=== PATIENT | female | born 1980 | race Caucasian/White ===

== ENCOUNTER 2018-12-30 09:37 | Inpatient (IN) | payer OTHER ==
[2018-12-30 10:21] VITALS: BMI 27.6
--- NOTE | 2018-12-30 11:19 | HP ---
CIWA Score Nausea/Vomitin-Mild Nausea/No Vomiting Muscle Tremors: 4-Moderate,w/Arms Extend Anxiety: 4-Mod. Anxious/Guarded Agitation: 3 Paroxysmal Sweats: No Perspiration Orientation: 0-Oriented Tacttile Disturbances: 0-None Auditory Disturbances: 0-None Visual Disturbances: 0-None Headache: 2-Mild (appropriate for detox) CIWA-Ar Total Score: 14 - Admission Criteria OASAS Guidelines: Admission for Medically Managed Detox: Requires at least one of the followin. CIWA greater than 12 2. Seizures within the past 24 hours 3. Delirium tremens within the past 24 hours 4. Hallucinations within the past 24 hours 5. Acute intervention needed for co occurring medical disorder 6. Acute intervention needed for co occurring psychiatric disorder 7. Severe withdrawal that cannot be handled at a lower level of care (continued vomiting, continued diarrhea, abnormal vital signs) requiring intravenous medication and/or fluids 8. Admission ROS [facility] Chief Complaint: " I want to stop drinking and I have an 8 year old son and I want to wean off the valium and find ways to cope instead of using Valium." Allergies/Adverse Reactions: Allergies Allergy/AdvReac Type Severity Reaction Status Date / Time No Known Allergies Allergy Verified 12/30/18 10:04 History of Present Illness: Patient is 38 year old female on suboxone maintenance by Dr. Wilder. She takes gabapentin for anxiety. She takes effexor once a day. She is also alcohol dependent and it is out of control. Psych Hx: Depression on Effexor Patient is drinking 8-9 drinks per day of wine to hard liquor. She started drinking at 14 years of age. She has blacked out in the past but not recently. She denies seizures in the past. Patient is getting prescribed valium for many years but she does not have psychiatrist. Patient smokes 1ppd of ciggarettes daily. Started smoking at 14 years old. PMH: None Psurg Hx: None, except C/S for delivery of son. Patient denies any legal issues pending. Patient is domiciled on [address] and son is with his father. Exam Limitations: No Limitations - Ebola screening Have you traveled outside of the country in the last 21 days: No Have you had contact with anyone from an Ebola affected area: No Have you been sick,other than usual withdrawal symptoms: No Do you have a fever: No - Review of Systems Constitutional: No Symptoms Reported, Loss of Appetite EENT: reports: No Symptoms Reported Respiratory: reports: Cough Cardiac: reports: No Symptoms Reported GI: reports: Constipated, Nausea, Indigestion : reports: No Symptoms Reported Musculoskeletal: reports: No Symptoms Reported Integumentary: reports: No Symptoms Reported Neuro: reports: Headache Endocrine: reports: No Symptoms Reported Hematology: reports: No Symptoms Reported Psychiatric: reports: Agitated, Anxious, Depressed Other Systems: Reviewed and Negative Patient History - Patient Medical History Hx Anemia: No Hx Asthma: No Hx Chronic Obstructive Pulmonary Disease (COPD): No Hx Cancer: No Hx Cardiac Disorders: No Hx Congestive Heart Failure: No Hx Hypertension: No Hx Hypercholesterolemia: No Hx Pacemaker: No HX Cerebrovascular Accident: No Hx Seizures: No Hx Dementia: No Hx Diabetes: No Hx Gastrointestinal Disorders: No Hx Liver Disease: No Hx Genitourinary Disorders: No Hx Sexually Transmitted Disorders: No Hx Renal Disease (ESRD): No Hx Thyroid Disease: No Hx Human Immunodeficiency Virus (HIV): No (last tested 3 month ago negative) Hx Hepatitis C: No (last tested 3 month ago negative) Hx Depression: Yes Hx Suicide Attempt: No Hx Bipolar Disorder: No Hx Schizophrenia: No - Patient Surgical History Past Surgical History: Yes Hx Section: Yes (for son's delivery) - PPD History Previous Implant?: Yes Documented Results: Negative w/o proof Implanted On Prior [facility] Admission?: No Date: 07/08/18 Results: negative PPD to be Administered?: No - Reproductive History Patient is a Female of Child Bearing Age (11 -55 yrs old): Yes Last Menstrual Period: 12/14/18 Patient : No - Smoking Cessation Smoking history: Current every day smoker Have you smoked in the past 12 months: Yes Aproximately how many cigarettes per day: 20 Hx Chewing Tobacco Use: No Initiated information on smoking cessation: Yes 'Breaking Loose' booklet given: 12/30/18 - Substance & Tx. History Hx Alcohol Use: Yes (many different forms of alcohol daily) Hx Substance Use: Yes Substance Use Type: Cocaine, Marijuana, Opiates, Tranquilizers Hx Substance Use Treatment: Yes (on suboxone program) - Substances abused Alcohol Substance route: Oral Frequency: Daily Amount used: 2 bottles of wine, 2-3 beers, 2-3 vodka and cranberry (VARIES) Age of first use: 14 Date of last use: 12/29/18 Family Disease History - Family Disease History Family Disease History: Other: Father (unknown), Mother (alive depression), Brother (alive and well), Son (1 son 8 years old) Admission Physical Exam [facility] - Vital Signs Vital Signs: Vital Signs - 24 hr 12/30/18 12/30/18 10:04 10:41 Temperature 98.6 F 98.6 F Pulse Rate 91 H 91 H Respiratory 18 18 Rate Blood Pressure 142/94 142/94 - Physical General Appearance: Yes: Mild Distress HEENTM: Yes: EOMI, Hearing grossly Normal, Normocephalic, Normal Voice, NEDRA, Pharynx Normal Respiratory: Yes: Chest Non-Tender, Lungs Clear Neck: Yes: No masses,lesions,Nodules, Supple, Trachea in good position Breast: Yes: Breast Exam Deferred Cardiology: Yes: Regular Rhythm, S1, S2, Tachycardia Abdominal: Yes: Normal Bowel Sounds, Non Tender, Soft Genitourinary: Yes: Within Normal Limits Back: Yes: Normal Inspection Musculoskeletal: Yes: full range of Motion, Gait Steady Extremities: Yes: Normal Capillary Refill, Normal Inspection, Normal Range of Motion, Non-Tender 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, Fully Oriented, Alert, Motor Strength 5/5, Normal Mood/Affect Integumentary: Yes: Normal Color, Warm Lymphatic: Yes: Within Normal Limits - Diagnostic (1) Alcohol dependence with withdrawal, uncomplicated Current Visit: Yes Status: Acute (2) Depression Current Visit: Yes Status: Acute (3) Opioid dependence Current Visit: Yes Status: Acute (4) Anxiety Current Visit: Yes Status: Acute Cleared for Admission [facility] - Detox or Rehab [facility] Level of Care: Medically Managed Screened but not Admitted - Documentation of Visit Screened but not Admitted: No Breathalyzer - Breathalyzer Breathalyzer: 0.008 Vital Signs - Vital Signs Vital signs refused: No Temperature: 98.6 F Temperature source: Oral Pulse Rate: 91 Respiratory Rate: 20 Blood Pressure: 142/94 BP Location: Left Arm Blood Pressure position: Sitting - Height Height: 5 ft 7 in - Weight Weight: 176 lb Weight measurement method: Standing scale - BMI Body Mass Index (BMI): 27.6 - Bowel Function Bowel Movement: No Urine Drug Screen - Test Device Lot number: [id number] Expiration date: 09/21/20 - Control Is test valid?: Yes - Results Drug screen NEGATIVE: No Urine drug screen results: THC-Marijuana, ANA-Cocaine, BZO-Benzodiazepines, BUP- Suboxone Inpatient Rehab Admission - Rehab Decision to Admit Inpatient rehab admission?: No
[2018-12-30] MEDS ORDERED: MENTHOL/PHENOL 1 EACH UD MM PRN (11:36)
[2018-12-30] MEDS ORDERED: BISMUTH SUBSALICYLATE 262 MG/15 ML BTL PO PRN (11:36)
[2018-12-30] MEDS ORDERED: ACETAMINOPHEN 325 MG TABLET (FP) PO PRN ×2 (11:36)
[2018-12-30] MEDS ORDERED: MAGNESIUM CITRATE 300 ML BOTTLE PO PRN (11:36)
[2018-12-30] MEDS ORDERED: IBUPROFEN 400 MG TABLET (FP) PO PRN (11:36)
[2018-12-30] MEDS ORDERED: MAGNESIUM HYDROX 2400MG/30ML ORAL SUSPENSION 30 ML CUP PO PRN (11:36)
[2018-12-30] MEDS ORDERED: MAG HYDROX/AL HYDROX/SIMETH 30 ML UNIT-DOSE CUP PO PRN (11:36)
[2018-12-30] MEDS: GABAPENTIN 300 MG CAPSULE (FP) PO SCH ×2 (12:57→22:15)
[2018-12-30] MEDS: NICOTINE 14 MG/24 HOURS TOPICAL PATCH TD SCH (12:57)
[2018-12-30] MEDS: chlordiazePOXIDE HCL 25 MG CAPSULE PO PRN (12:57)
[2018-12-30] MEDS: VENLAFAXINE HCL 75 MG TABLET PO SCH ×2 (13:00→22:14)
[2018-12-30] MEDS: BUPRENORPHINE/NALOXONE 8 MG/2 MG FILM PACKET SL SCH (13:18)
[2018-12-30 15:58] LABS: HEMATOCRIT 38.8 % (32.4-45.2); HEMOGLOBIN 13.2 GM/dL (10.7-15.3); MCHC 33.9 g/dl (32.0-36.0); MEAN CELL VOLUME 94.5 fl (80-96); PLATELET COUNT 258 K/MM3 (134-434); RBC 4.11 M/mm3 (3.60-5.2); RDW 13.7 % (11.6-15.6); WHITE BLOOD COUNT 6.9 K/mm3 (4.0-10.0)
[2018-12-30 16:11] LABS: ALBUMIN 4.2 g/dl (3.4-5.0); BILIRUBIN,TOTAL 0.6 mg/dL (0.2-1); BLOOD UREA NITROGEN 10.2 mg/dL (7-18); CALCIUM 9.9 mg/dL (8.5-10.1); CREATININE 0.8 mg/dL (0.55-1.3); POTASSIUM 4.2 mmol/L (3.5-5.1)
[2018-12-30] MEDS: chlordiazePOXIDE HCL 25 MG CAPSULE PO SCH ×2 (17:30→22:14)
[2018-12-30] MEDS: THIAMINE HCL 100 MG TABLET (FP) PO SCH (22:14)
[2018-12-30] MEDS: MELATONIN 5 MG TABLETS PO PRN (22:15)
[2018-12-31] MEDS: chlordiazePOXIDE HCL 25 MG CAPSULE PO SCH ×4 (05:57→22:50)
[2018-12-31] MEDS: GABAPENTIN 300 MG CAPSULE (FP) PO SCH ×2 (10:36→22:49)
[2018-12-31] MEDS: BUPRENORPHINE/NALOXONE 8 MG/2 MG FILM PACKET SL SCH (10:36)
[2018-12-31] MEDS: VENLAFAXINE HCL 75 MG TABLET PO SCH ×2 (10:37→22:49)
[2018-12-31] MEDS: hydrOXYzine HCL 25 MG TABLET (FP) PO PRN (10:37)
[2018-12-31] MEDS: NICOTINE 14 MG/24 HOURS TOPICAL PATCH TD SCH (10:37)
[2018-12-31] MEDS: PRENATAL VITAMINS W/ FOLIC ACID TABLET (FP) PO SCH (10:37)
--- NOTE | 2018-12-31 12:13 | PN ---
S CIWA - CIWA Score Nausea/Vomitin-No Nausea/No Vomiting Muscle Tremors: 3 Anxiety: 3 Agitation: 3 Paroxysmal Sweats: 3 Orientation: 0-Oriented Tacttile Disturbances: 0-None Auditory Disturbances: 0-None Visual Disturbances: 0-None Headache: 0-None Present CIWA-Ar Total Score: 12 S Progress Note (SOAP) Subjective: sweats shakes interrupted sleep body aches achy Objective: 12/31/18 12:12 Vital Signs Temperature 98.6 F 12/31/18 10:12 Pulse Rate 56 L 12/31/18 10:12 Respiratory Rate 20 12/31/18 10:12 Blood Pressure 136/69 12/31/18 10:12 O2 Sat by Pulse Oximetry (%) Laboratory Tests 12/30/18 12/30/18 12/30/18 11:40 11:40 11:40 WBC 6.9 RBC 4.11 Hgb 13.2 Hct 38.8 MCV 94.5 MCH 32.0 MCHC 33.9 RDW 13.7 Plt Count 258 MPV 9.0 Sodium 138 Potassium 4.2 Chloride 101 Carbon Dioxide 28 Anion Gap 9 BUN 10.2 Creatinine 0.8 Est GFR (CKD-EPI)AfAm 108.39 Est GFR (CKD-EPI)NonAf 93.52 Random Glucose 95 Calcium 9.9 Total Bilirubin 0.6 AST 111 H ALT 85 H Alkaline Phosphatase 122 H Total Protein 8.0 Albumin 4.2 RPR Titer Nonreactive labs noted aaox3 ambulating no acute distress Assessment: 12/31/18 12:12 withdrawal sx Plan: continue detox increase fluids
[2018-12-31] MEDS: METHOCARBAMOL 500 MG TABLET PO PRN (12:23)
[2018-12-31] MEDS: chlordiazePOXIDE HCL 25 MG CAPSULE PO PRN (12:23)
[2018-12-31] MEDS: THIAMINE HCL 100 MG TABLET (FP) PO SCH (22:49)
[2018-12-31] MEDS: MELATONIN 5 MG TABLETS PO PRN (22:50)
[2019-01-01] MEDS: chlordiazePOXIDE HCL 25 MG CAPSULE PO SCH ×4 (05:23→22:52)
[2019-01-01] MEDS: BUPRENORPHINE/NALOXONE 8 MG/2 MG FILM PACKET SL SCH (10:45)
[2019-01-01] MEDS: PRENATAL VITAMINS W/ FOLIC ACID TABLET (FP) PO SCH (10:45)
[2019-01-01] MEDS: GABAPENTIN 300 MG CAPSULE (FP) PO SCH ×2 (10:45→22:52)
[2019-01-01] MEDS: VENLAFAXINE HCL 75 MG TABLET PO SCH ×2 (10:45→22:52)
[2019-01-01] MEDS: hydrOXYzine HCL 25 MG TABLET (FP) PO PRN ×2 (10:46→17:42)
[2019-01-01] MEDS: METHOCARBAMOL 500 MG TABLET PO PRN ×2 (10:46→17:40)
[2019-01-01] MEDS: NICOTINE 14 MG/24 HOURS TOPICAL PATCH TD SCH (10:46)
--- NOTE | 2019-01-01 13:26 | PN ---
S CIWA - CIWA Score Nausea/Vomitin-No Nausea/No Vomiting Muscle Tremors: 3 Anxiety: 2 Agitation: 2 Paroxysmal Sweats: 2 Orientation: 0-Oriented Tacttile Disturbances: 0-None Auditory Disturbances: 0-None Visual Disturbances: 0-None Headache: 0-None Present CIWA-Ar Total Score: 9 BHS Progress Note (SOAP) Subjective: sweats anxiety shakes Objective: 01/01/19 13:25 Vital Signs Temperature 97.7 F 01/01/19 09:38 Pulse Rate 69 01/01/19 09:38 Respiratory Rate 18 01/01/19 09:38 Blood Pressure 124/86 01/01/19 09:38 O2 Sat by Pulse Oximetry (%) Laboratory Tests 12/30/18 12/30/18 12/30/18 11:40 11:40 11:40 WBC 6.9 RBC 4.11 Hgb 13.2 Hct 38.8 MCV 94.5 MCH 32.0 MCHC 33.9 RDW 13.7 Plt Count 258 MPV 9.0 Sodium 138 Potassium 4.2 Chloride 101 Carbon Dioxide 28 Anion Gap 9 BUN 10.2 Creatinine 0.8 Est GFR (CKD-EPI)AfAm 108.39 Est GFR (CKD-EPI)NonAf 93.52 Random Glucose 95 Calcium 9.9 Total Bilirubin 0.6 AST 111 H ALT 85 H Alkaline Phosphatase 122 H Total Protein 8.0 Albumin 4.2 RPR Titer Nonreactive labs noted aaox3 ambulating no acute distress Assessment: 01/01/19 13:26 withdrawal sx Plan: continue detox increase fluids
[2019-01-01] MEDS: chlordiazePOXIDE HCL 25 MG CAPSULE PO PRN (20:13)
[2019-01-01] MEDS: MELATONIN 5 MG TABLETS PO PRN (22:52)
[2019-01-01] MEDS: THIAMINE HCL 100 MG TABLET (FP) PO SCH (22:52)
[2019-01-02] MEDS ORDERED: chlordiazePOXIDE HCL 10 MG CAPSULE PO PRN
[2019-01-02] MEDS: chlordiazePOXIDE HCL 10 MG CAPSULE PO SCH ×4 (00:44→22:39)
[2019-01-02] MEDS: METHOCARBAMOL 500 MG TABLET PO PRN (09:05)
[2019-01-02] MEDS: hydrOXYzine HCL 25 MG TABLET (FP) PO PRN (09:05)
[2019-01-02] MEDS: VENLAFAXINE HCL 75 MG TABLET PO SCH ×2 (10:36→22:39)
[2019-01-02] MEDS: GABAPENTIN 300 MG CAPSULE (FP) PO SCH ×2 (10:36→22:39)
[2019-01-02] MEDS: BUPRENORPHINE/NALOXONE 8 MG/2 MG FILM PACKET SL SCH (10:36)
[2019-01-02] MEDS: PRENATAL VITAMINS W/ FOLIC ACID TABLET (FP) PO SCH (10:36)
[2019-01-02] MEDS: NICOTINE 14 MG/24 HOURS TOPICAL PATCH TD SCH (10:36)
--- NOTE | 2019-01-02 17:13 | PN ---
[facility] CIWA - CIWA Score Nausea/Vomitin-Mild Nausea/No Vomiting Muscle Tremors: 3 Anxiety: 2 Agitation: 2 Paroxysmal Sweats: 3 Orientation: 0-Oriented Tacttile Disturbances: 0-None Auditory Disturbances: 0-None Visual Disturbances: 0-None Headache: 0-None Present CIWA-Ar Total Score: 11 S Progress Note (SOAP) Subjective: Very anxious, interrupted sleep, restless Objective: 01/02/19 17:10 Last Vital Signs Temp Pulse Resp BP Pulse Ox 96.3 F L 81 18 136/87 01/02/19 13:41 01/02/19 13:41 01/02/19 13:41 01/02/19 13:41 Elevated b/p: most likely due to anxiety, encouraged relaxation technique such as deep breathing exercises prn Laboratory Tests 12/30/18 12/30/18 12/30/18 11:40 11:40 11:40 WBC 6.9 RBC 4.11 Hgb 13.2 Hct 38.8 MCV 94.5 MCH 32.0 MCHC 33.9 RDW 13.7 Plt Count 258 MPV 9.0 Sodium 138 Potassium 4.2 Chloride 101 Carbon Dioxide 28 Anion Gap 9 BUN 10.2 Creatinine 0.8 Est GFR (CKD-EPI)AfAm 108.39 Est GFR (CKD-EPI)NonAf 93.52 Random Glucose 95 Calcium 9.9 Total Bilirubin 0.6 AST 111 H ALT 85 H Alkaline Phosphatase 122 H Total Protein 8.0 Albumin 4.2 RPR Titer Nonreactive TB (QFT) Incubation TB Test (QFT) Nil TB Test (QFT) Mitogen TB Test (QFT) Antigen TB Test (QFT) TB Positive Criteria 12/30/18 11:40 WBC RBC Hgb Hct MCV MCH MCHC RDW Plt Count MPV Sodium Potassium Chloride Carbon Dioxide Anion Gap BUN Creatinine Est GFR (CKD-EPI)AfAm Est GFR (CKD-EPI)NonAf Random Glucose Calcium Total Bilirubin AST ALT Alkaline Phosphatase Total Protein Albumin RPR Titer TB (QFT) Incubation TB Test (QFT) Nil 0.04 TB Test (QFT) Mitogen >10.00 TB Test (QFT) Antigen 0.03 TB Test (QFT) Negative TB Positive Criteria Labs reviewed Assessment: 01/02/19 17:10 Withdrawal sxs Plan: Continue detox Encouraged PO water intake
[2019-01-02] MEDS: THIAMINE HCL 100 MG TABLET (FP) PO SCH (22:39)
[2019-01-02] MEDS: MELATONIN 5 MG TABLETS PO PRN (22:40)
[2019-01-03] MEDS ORDERED: chlordiazePOXIDE HCL 10 MG CAPSULE PO SCH (05:00)
[2019-01-03 06:43] VITALS: BP 109/78; PULSE 68; TEMP 97.2
[2019-01-03] MEDS: hydrOXYzine HCL 25 MG TABLET (FP) PO PRN (07:59)
[2019-01-03] MEDS: PRENATAL VITAMINS W/ FOLIC ACID TABLET (FP) PO SCH (09:20)
[2019-01-03] MEDS: BUPRENORPHINE/NALOXONE 8 MG/2 MG FILM PACKET SL SCH (09:20)
[2019-01-03] MEDS: VENLAFAXINE HCL 75 MG TABLET PO SCH (09:20)
[2019-01-03] MEDS: GABAPENTIN 300 MG CAPSULE (FP) PO SCH (09:22)
[2019-01-03] MEDS: NICOTINE 14 MG/24 HOURS TOPICAL PATCH TD SCH (09:22)
--- NOTE | 2019-01-03 09:23 | DS ---
[facility] Detox Discharge Summary Admission Date: 12/30/18 Discharge Date: 01/03/19 - History Present History: Alcohol Dependence, Opioid Dependence - Physical Exam Results Vital Signs: Vital Signs Temperature 97.2 F L 01/03/19 06:00 Pulse Rate 68 01/03/19 06:00 Respiratory Rate 18 01/03/19 06:00 Blood Pressure 109/78 01/03/19 06:00 O2 Sat by Pulse Oximetry (%) Pertinent Admission Physical Exam Findings: pt arrived in withdrawal Laboratory Tests 12/30/18 12/30/18 12/30/18 11:40 11:40 11:40 WBC 6.9 RBC 4.11 Hgb 13.2 Hct 38.8 MCV 94.5 MCH 32.0 MCHC 33.9 RDW 13.7 Plt Count 258 MPV 9.0 Sodium 138 Potassium 4.2 Chloride 101 Carbon Dioxide 28 Anion Gap 9 BUN 10.2 Creatinine 0.8 Est GFR (CKD-EPI)AfAm 108.39 Est GFR (CKD-EPI)NonAf 93.52 Random Glucose 95 Calcium 9.9 Total Bilirubin 0.6 AST 111 H ALT 85 H Alkaline Phosphatase 122 H Total Protein 8.0 Albumin 4.2 RPR Titer Nonreactive TB (QFT) Incubation TB Test (QFT) Nil TB Test (QFT) Mitogen TB Test (QFT) Antigen TB Test (QFT) TB Positive Criteria 12/30/18 11:40 WBC RBC Hgb Hct MCV MCH MCHC RDW Plt Count MPV Sodium Potassium Chloride Carbon Dioxide Anion Gap BUN Creatinine Est GFR (CKD-EPI)AfAm Est GFR (CKD-EPI)NonAf Random Glucose Calcium Total Bilirubin AST ALT Alkaline Phosphatase Total Protein Albumin RPR Titer TB (QFT) Incubation TB Test (QFT) Nil 0.04 TB Test (QFT) Mitogen >10.00 TB Test (QFT) Antigen 0.03 TB Test (QFT) Negative TB Positive Criteria today pt is aaox3 ambulating no s/s of withdrawals - Treatment Hospital Course: Detox Protocol Followed, Detoxed Safely, Responded well, Discharged Condition Good, Rehab Referral Accepted Patient has Accepted a Rehab Referral to: referral provided - Medication Discharge Medications: Ambulatory Orders Buprenorphine HCl/Naloxone HCl [Buprenorp-Nalox 8-2 mg Sl Film] 1 each SL DAILY 12/30/18 Gabapentin [Neurontin] 600 mg PO BID 12/30/18 Venlafaxine HCl [Effexor -] 75 mg PO BID 12/30/18 - Diagnosis (1) Alcohol dependence with withdrawal, uncomplicated Current Visit: Yes Status: Chronic (2) Anxiety Current Visit: Yes Status: Acute (3) Depression Current Visit: Yes Status: Acute (4) Opioid dependence Current Visit: Yes Status: Chronic Qualifiers: Substance use status: uncomplicated Qualified Code(s): F11.20 - Opioid dependence, uncomplicated - AMA Did Patient Leave Against Medical Advice: No
[2019-01-04] MEDS ORDERED: chlordiazePOXIDE HCL 10 MG CAPSULE PO ONE (05:00)
== END 2019-01-03 09:23 | disposition home or self-care (01) | DRG 773 ==
LOC: YASAS 09:37 → Y6N 12:30
PROVIDERS: ADMIT Surgery; ATTEND Surgery
PROC: HZ2ZZZZ Detoxification Services for Substance Abuse Treatment (ICD-10-PCS; principal; 2018-12-30)
DX: F10.230 Alcohol dependence with withdrawal, uncomplicated (principal); F11.20 Opioid dependence, uncomplicated; F17.210 Nicotine dependence, cigarettes, uncomplicated; F41.9 Anxiety disorder, unspecified; F32.9 Major depressive disorder, single episode, unspecified; R03.0 Elevated blood-pressure reading, without diagnosis of hypertension
CPT/HCPCS: 36415; 80053; 81025; 85027; 86480; 86593